=== PATIENT | male | born 1955 | race Caucasian/White ===

== ENCOUNTER 2016-10-21 09:31 | Emergency (ER) | payer OTHER ==
--- NOTE | 2016-10-21 10:48 | ED NECK/BACK PAIN COMPLAINT ---
History of Present Illness General Chief Complaint: Low Back Pain/Injury Stated Complaint: LOWER BACK PAIN Source: patient, family Exam Limitations: no limitations Vital Signs & Intake/Output Vital Signs & Intake/Output Vital Signs Date Time Temp Pulse Resp B/P B/P Pulse O2 O2 Flow FiO2 Mean Ox Delivery Rate 10/21 1239 84 18 134/78 100 Room Air 10/21 0945 98.7 64 16 126/73 96 Room Air Allergies Coded Allergies: MDX - Amoxicillin (From AUGMENTIN) (Intermediate, RASH 11/25/10) MDX - Clavulanic Acid (From AUGMENTIN) (Intermediate, RASH 11/25/10) Reconcile Medications Cyclobenzaprine HCl 10 MG TABLET 1 TAB PO Q8P PAIN OR SPASM Ibuprofen 600 MG TABLET 1 TAB PO TID PRN PAIN with food Triage Note: PT TO ED C/O LOWER BACK PAIN SINCE SATURDAY NIGHT. DENIES ANY INJURY, DENIES ANY URINARY S/S. USED ALEVE AND HEATING PAD WITH A LITTL RELIEF. FELT STIFF THIS AM WHEN HE WOKE UP. Triage Nurses Notes Reviewed? yes HPI: Vision presents complaining of right lower back pain. The pain started Saturday night but worsened yesterday. The pain is constant. The pain increases with movement. The pain is aching but sharp stabbing pain. There is no radiation. He rates the pain as 8 out of 10. There is no weakness or numbness. There is no incontinence of bowel or bladder. Patient states on Saturday he was doing a lot of work on his boat. Past History Travel History Traveled to [place] past 21 day No Medical History Any Pertinent Medical History? see below for history Respiratory: asthma Surgical History Surgical History: non-contributory Psychosocial History What is your primary language Slovenian Tobacco Use: Never used ETOH Use: occasional use Illicit Drug Use: denies illicit drug use Family History Hx Contributory? No Review of Systems Review of Systems Constitutional: Reports: no symptoms. Ears, Nose, Throat, Mouth: Reports: no symptoms. Respiratory: Reports: no symptoms. Cardiovascular: Reports: no symptoms. Gastrointestinal/Abdominal: Reports: no symptoms. Musculoskeletal: Reports: see HPI, back pain. Neurological/Psychological: Reports: no symptoms. Physical Exam Physical Exam General Appearance: well developed/nourished, alert, awake, anxious, moderate distress Head: atraumatic, normal appearance Eyes: Bilateral: PERRL, EOMI. Ears, Nose, Throat, Mouth: hearing grossly normal, moist mucous membrane Neck: normal inspection, supple, full range of motion, no midline tenderness Respiratory: normal breath sounds, chest non-tender, no respiratory distress, lungs clear Cardiovascular: regular rate/rhythm, normal peripheral pulses Gastrointestinal: normal bowel sounds, soft, non-tender, no organomegaly Back: normal inspection, normal range of motion, muscle spasm, no vertebral tenderness Extremities: non-tender, normal range of motion Straight Leg Raising: Right: Negative. Left: Negative. Neurologic/Psych: no motor/sensory deficits, awake, alert, oriented x 3, normal gait, normal mood/affect Progress Differential Diagnosis: herniated disc, myofascial strain, sciatica, T/L spine injury, ureterolithiasis Plan of Care: Orders Procedure Date/time Status URINALYSIS 10/21 1048 Complete Laboratory Tests 10/21/16 1137: Urine Color YEL, Urine Clarity CLEAR, Urine pH 6.0, Ur Specific [place] 1.020, Urine Protein NEG, Urine Ketones NEG, Urine Nitrite NEG, Urine Bilirubin NEG, Urine Urobilinogen 0.2, Ur Leukocyte Esterase NEG, Ur Microscopic EXAM NOT REQUIRED, Urine Hemoglobin NEG, Urine Glucose NEG Comments: Pain is decreased down to a 5 out of 10 after the Motrin and Flexeril. Patient feels comfortable going home. Departure Departure Disposition: HOME OR SELF CARE Condition: Stable Clinical Impression Primary Impression: Back pain Referrals: NORA VASQUEZ,SULTANA Hall (PCP/Family) Additional Instructions: USE MOIST HEAT RETURN FOR ANY CONCERNS Departure Forms: Customer Survey General Discharge Information Prescriptions: Current Visit Scripts Cyclobenzaprine HCl 1 TAB PO Q8P #20 TAB Ibuprofen 1 TAB PO TID PRN PAIN #20 TAB with food
[2016-10-21] MEDS ORDERED: IBUPROFEN600 M1 PO (11:19)
[2016-10-21] MEDS ORDERED: CYCLOBENZAPRINE10 M1 PO (11:19)
[2016-10-21 12:39] VITALS: BP 134/78
== END 2016-10-21 12:40 ==
LOC: ERH 09:31
DX: M54.5 Low back pain (principal)
CPT/HCPCS: 81003